=== PATIENT | female | born 1980 | race Two or more races ===

== ENCOUNTER → 2024-04-24 | Outpatient (CLI) | payer MEDICARE, MEDICAID, SELFPAY ==
--- NOTE | 2024-04-24 10:11 | XR_ITS ---
Examination: Lumbar spine 3 views Technique one AP lateral coned lateral lower lumbar spine 3 views Exam date and time: April 24, 2024 1024 hours INDICATIONS: Lower back pain one month worse the last 2 weeks FINDINGS: Significant osteopenia Intrauterine device central pelvis Grade 1 retrolisthesis L4 on L5 Mild disc narrowing L3-L4, L4-L5, moderate disc narrowing L5-S1 No spondylolisthesis IMPRESSION: No lumbar fracture Mild disc narrowing L3-L4, L4-L5 Moderate disc narrowing L5-S1
== END | disposition home or self-care (01) ==
PROVIDERS: PCP Family Medicine; Referring Provider Nurse Practitioner Family; Visit Provider Nurse Practitioner Family
DX: M48.061 Spinal stenosis, lumbar region without neurogenic claudication (principal); M48.07 Spinal stenosis, lumbosacral region
CPT/HCPCS: 72100

== ENCOUNTER → 2024-07-06 | Outpatient (CLI) | payer MEDICARE, MEDICAID, SELFPAY ==
--- NOTE | 2024-07-06 13:00 | XR_ITS ---
Examination: Bone densitometry Date and time of exam:July 06, 2024 at 1301 hours INDICATIONS: Premenopausal, diagnosis lupus, prednisone administration 10 years Technique: Lumbar spine and hip total bone mineralization values of an calculated. Peak reference and age match control results have been displayed. Findings: Lumbar spine total bone mineralization is0.966 gm/cm2. This is 0.7 standard deviations below peak reference. This is 0.3 standard deviations below age-matched controls. Hip total bone mineralization is 0.859 gm/cm2 This is 0.7 standard deviations below peak reference. This is 0.4 standard deviations below age-matched controls Impression: There is normal mineralization based on lumbar spine measurements. There is normal mineralization based on hip measurements
== END | disposition home or self-care (01) ==
PROVIDERS: PCP Family Medicine; Referring Provider Nurse Practitioner Family; Visit Provider Nurse Practitioner Family
DX: M81.0 Age-related osteoporosis without current pathological fracture (principal)
CPT/HCPCS: 77080

== ENCOUNTER → 2024-12-03 | Outpatient (CLI) | payer MEDICARE, MEDICAID, SELFPAY ==
--- NOTE | 2024-12-03 09:30 | XR_ITS ---
Examination: Screening digital mammography, bilateral Computer aided detection 3-D breast Tomosynthesis, bilateral Date and time of exam: December 03, 2024 0954 hours, comparison October 09, 2017 Indication: Screening Technique: Nonmagnified MLO, CC views of the breasts to been obtained, reconstructed from 3-D Tomosynthesis images. R2 computer aided detection program utilized for evaluation of suspicious masses and/or abnormal calcifications. 3-D Tomosynthesis images obtained. Findings: The breasts are heterogeneously dense, which may obscure small masses Breast biopsy marker associated with circumscribed 32 mm nodule upper outer right breast Also circumscribed 14 mm nodule upper outer right breast Breast biopsy marker also associated with circumscribed nodule 6 mm upper outer left breast In addition 13 mm nodule partially indistinct margins upper inner left breast Impression: BI-RADS Category 0: Incomplete: Need additional imaging evaluation Recommend follow-up spot tomographic views of 13 mm nodule partially indistinct margins upper inner left breast Also recommend bilateral breast sonography to assess additional nodules described above
== END | disposition home or self-care (01) ==
LOC: CDIM 09:23
PROVIDERS: Referring Provider Nurse Practitioner Family; Visit Provider Nurse Practitioner Family
DX: Z12.31 Encounter for screening mammogram for malignant neoplasm of breast (principal); N63.22 Unspecified lump in the left breast, upper inner quadrant
CPT/HCPCS: 77063; 77067